=== PATIENT | female | born 1960 ===

== ENCOUNTER 2019-06-13 11:20 | Inpatient (IN) | payer MEDICARE, MEDICAID ==
[2019-06-13 12:09] VITALS: BP 93/64
[2019-06-13] MEDS ORDERED: Maalox 30 mL Cup PO PRN (13:04)
[2019-06-13] MEDS ORDERED: Magnesium Hydroxide (MOM) 30 mL UDC PO PRN (13:04)
[2019-06-13] MEDS ORDERED: Acetaminophen 500 MG TAB PO PRN (13:04)
--- NOTE | 2019-06-14 03:49 | Consultation ---
DATE OF CONSULTATION: 06/13/2019 INTERNAL MEDICINE CONSULTATION CHIEF COMPLAINT: Agitated, suicidal ideations. SUBJECTIVE: A 59-year-old female with hypertension, hyperlipidemia, who is brought in for management of ideation and behavior. The patient denies any chest pain or shortness of breath. No nausea, vomiting, abdominal pain, diarrhea. PAST MEDICAL HISTORY: None. MEDICATIONS: None. ALLERGIES: None. SOCIAL HISTORY: No tobacco, IV drugs, ETOH negative. PHYSICAL EXAMINATION: VITAL SIGNS: Temperature is ____. HEENT: Normocephalic, atraumatic head exam. NECK: Supple. CARDIOVASCULAR: Regular rate and rhythm. LUNGS: Clear. ABDOMEN: Soft, nontender. EXTREMITIES: No edema, cyanosis or clubbing. ASSESSMENT AND PLAN: 1. Agitation. 2. Suicidal ideations. Overall, the patient will continue with supportive care. JOB# [id number]
[2019-06-14] MEDS: Multivitamin Tab PO SCH (08:39)
--- NOTE | 2019-06-14 11:37 | Psychiatric Evaluation ---
DATE OF SERVICE: 06/14/2019 JUSTIFICATION FOR HOSPITALIZATION: The patient apparently was making statement she wanted to kill sister, aggressive, threatening sister. HISTORY OF PRESENT ILLNESS: This is a 59-year-old female noted history of schizophrenia per the hold, apparently was making threats to sister. The patient states that she is here because she was making threats to sister "misunderstanding." On exam, the patient is calm, quiet manner and stating this was a misunderstanding. She has no history of mental illness. She does not know why she is here, "something horrible and mean and frightening happened," somewhat hyperbolic. The patient denying that she did anything, that she did not want to harm anybody, minimizing her symptoms. Mood "okay." Anxiety "no." Sleep "fine." Appetite "okay." PAST PSYCHIATRIC HISTORY: Denies mental illness, denies hospitalizations. Noted history of schizophrenia. Denying being on medications. FAMILY HISTORY: Noncontributory. SOCIAL HISTORY: Born in [place], living in [place] now. Not , no kids. Sometimes smokes cigarettes. AO to name, place, not situation. She knows the year, the month. MEDICATIONS: Noted. MENTAL STATUS EXAMINATION: Stated age, unkempt, fair eye contact. Speech somewhat childlike. Behavior somewhat childlike. Speech low volume. Mood "fine." Affect constricted. Thought processes were grossly engaged, no SI, minimizing any HI. Denying any psychotic symptoms. Insight questionable. DIAGNOSIS: Schizophrenia. MEDICAL: Please see full H and P. ASSESSMENT: This is a 59-year-old female, currently in the hospital. Homicidal. Concerns for medication compliance. ESTIMATED LENGTH OF STAY: 7-10 days. PLAN: Treatment plan includes group as well as milieu therapy. Restart medications. Can adjust medications. CONDITIONS FOR DISCHARGE: Improved mood, improved affect, better control of any psychosis. Cessation of any HI, anxiousness. JOB# [id number]
--- NOTE | 2019-06-14 15:29 | Internal Medicine Prog Note ---
Internal Medicine Subjective - Subjective Service Date: 06/14/19 Patient seen and examined:: without staff Internal Medicine Objective - Physical Exam Vitals and I&O: Vital Signs Temp 98.3 F 06/14/19 14:00 Pulse 75 06/14/19 14:00 Resp 18 06/14/19 14:00 BP 99/55 06/14/19 14:00 Pulse Ox 96 06/14/19 14:00 Intake & Output 06/13/19 06/14/19 06/14/19 18:59 06:59 18:59 Intake Total 860 360 Balance 860 360 Weight (lbs) 79.379 kg Intake: Oral 860 360 Other: # Voids 3 2 # Bowel Movements 0 0 Weight Source Patient stated Active Medications: Current Medications Acetaminophen (Tylenol) 650 mg PO Q4H PRN PRN Reason: Pain (Mild 1-3) Stop: 08/12/19 13:03 Acetaminophen (Tylenol Extra Strength) 1,000 mg PO Q6H PRN PRN Reason: Pain (Moderate 4-6) Stop: 08/12/19 13:03 Last Admin: 06/14/19 08:39 Dose: 1,000 mg Al Hydrox/Mg Hydrox/Simethicone (Maalox) 30 ml PO Q4HR PRN PRN Reason: GI DISTRESS Stop: 08/12/19 13:03 Benztropine Mesylate (Cogentin) 1 mg PO DAILY [facility] Stop: 08/13/19 08:59 Ibuprofen (Motrin) 400 mg PO Q4H PRN PRN Reason: Pain (Severe 7-10) Stop: 08/12/19 13:03 Lorazepam (Ativan) 0.5 mg PO Q4HR PRN; Protocol PRN Reason: Anxiety Stop: 07/13/19 13:03 Magnesium Hydroxide (Milk Of Magnesia) 30 ml PO HS PRN PRN Reason: Constipation Multivitamins/Vitamin C (Theragran) 1 tab PO DAILY [facility] Stop: 08/13/19 08:59 Last Admin: 06/14/19 08:39 Dose: 1 tab Quetiapine Fumarate (Seroquel) 200 mg PO DAILY [facility]; Protocol Stop: 08/13/19 08:59 Sertraline HCl (Zoloft) 100 mg PO DAILY [facility]; Protocol Stop: 08/13/19 08:59 Zolpidem Tartrate (Ambien) 5 mg PO HS PRN PRN Reason: Insomnia Stop: 08/12/19 13:03 Last Admin: 06/13/19 21:11 Dose: 5 mg
[2019-06-15] MEDS: Benztropine 1 MG TAB PO SCH (08:40)
[2019-06-15] MEDS: Multivitamin Tab PO SCH (08:40)
--- NOTE | 2019-06-15 12:39 | Progress Notes ---
DATE: 06/15/2019 SUBJECTIVE: A 59-year-old female with history of schizophrenia, making threats to sister due to "misunderstanding." The patient states that somebody else was making these threats and she ended up here by accident. She states that she does not have schizophrenia and that some man was trying to enter her house and that is the reason that she is here now. The patient is generally calm, soft voice, delusional about some man trying to enter her house and triggered by another patient at times noted to be irritable, minimizing her symptoms. Medications reviewed. Labs reviewed. Vitals were reviewed. No overt side effects to medications. Blood pressure 99/55, pulse of 75. MENTAL STATUS EXAMINATION: Stated age, fair eye contact. Soft voice, minimizing her symptoms, denying that she even has any sort of mental illness whatsoever. Staff noting she is internally preoccupied, delusional. ASSESSMENT: A 59-year-old female with schizophrenia, acting strange apparently making threats towards sister. PLAN: We will continue inpatient monitoring, extend the hold, ongoing symptoms, safety concerns, increase dosing of Seroquel. JOB# [id number]
--- NOTE | 2019-06-15 14:19 | Internal Medicine Prog Note ---
Internal Medicine Subjective - Subjective Service Date: 06/15/19 Patient is:: awake Internal Medicine Objective - Physical Exam Vitals and I&O: Vital Signs Temp 0 F 06/15/19 05:58 Pulse 83 06/14/19 20:22 Resp 20 06/15/19 07:46 BP 123/84 06/14/19 20:22 Pulse Ox 96 06/14/19 20:22 Intake & Output 06/14/19 06/15/19 06/15/19 18:59 06:59 18:59 Intake Total 1320 120 Balance 1320 120 Intake: Oral 1080 120 Other 240 Other: # Voids 3 3 # Bowel Movements 1 0 Active Medications: Current Medications Acetaminophen (Tylenol) 650 mg PO Q4H PRN PRN Reason: Pain (Mild 1-3) Stop: 08/12/19 13:03 Acetaminophen (Tylenol Extra Strength) 1,000 mg PO Q6H PRN PRN Reason: Pain (Moderate 4-6) Stop: 08/12/19 13:03 Last Admin: 06/14/19 08:39 Dose: 1,000 mg Al Hydrox/Mg Hydrox/Simethicone (Maalox) 30 ml PO Q4HR PRN PRN Reason: GI DISTRESS Stop: 08/12/19 13:03 Benztropine Mesylate (Cogentin) 1 mg PO DAILY [facility] Stop: 08/13/19 08:59 Last Admin: 06/15/19 08:40 Dose: 1 mg Ibuprofen (Motrin) 400 mg PO Q4H PRN PRN Reason: Pain (Severe 7-10) Stop: 08/12/19 13:03 Lorazepam (Ativan) 0.5 mg PO Q4HR PRN; Protocol PRN Reason: Anxiety Stop: 07/13/19 13:03 Last Admin: 06/15/19 08:40 Dose: 0.5 mg Magnesium Hydroxide (Milk Of Magnesia) 30 ml PO HS PRN PRN Reason: Constipation Multivitamins/Vitamin C (Theragran) 1 tab PO DAILY [facility] Stop: 08/13/19 08:59 Last Admin: 06/15/19 08:40 Dose: 1 tab Quetiapine Fumarate (Seroquel) 50 mg PO DAILY [facility]; Protocol Stop: 08/14/19 08:59 Quetiapine Fumarate (Seroquel) 200 mg PO HS [facility] Stop: 08/14/19 20:59 Sertraline HCl (Zoloft) 100 mg PO DAILY [facility]; Protocol Stop: 08/13/19 08:59 Last Admin: 06/15/19 08:41 Dose: 100 mg Zolpidem Tartrate (Ambien) 5 mg PO HS PRN PRN Reason: Insomnia Stop: 08/12/19 13:03 Last Admin: 06/13/19 21:11 Dose: 5 mg HEENT: NC/AT Neck: Supple Lungs: CTAB Cardiovascular: RRR, Normal S1, Normal S2 Abdomen: soft, non-tender Extremities: clear Internal Medicine Assmt/Plan - Assessment Assessment: 1. Agitation 2. Suicidal ideation - Plan Plan: continue supportive care
[2019-06-16] MEDS: Multivitamin Tab PO SCH (08:52)
[2019-06-16] MEDS: Benztropine 1 MG TAB PO SCH (08:52)
--- NOTE | 2019-06-16 14:27 | Internal Medicine Prog Note ---
Internal Medicine Subjective - Subjective Service Date: 06/16/19 Patient seen and examined:: without staff Patient is:: awake Per staff patient has:: no adverse event, no episodes of fall Internal Medicine Objective - Physical Exam Vitals and I&O: Vital Signs Temp 98.1 F 06/16/19 06:25 Pulse 78 06/16/19 06:25 Resp 20 06/16/19 06:25 BP 100/63 06/16/19 06:25 Pulse Ox 98 06/16/19 06:25 Intake & Output 06/15/19 06/16/19 06/16/19 18:59 06:59 18:59 Intake Total 1200 120 Balance 1200 120 Intake: Oral 1200 120 Other: # Voids 4 1 # Bowel Movements 0 0 Active Medications: Current Medications Acetaminophen (Tylenol) 650 mg PO Q4H PRN PRN Reason: Pain (Mild 1-3) Stop: 08/12/19 13:03 Acetaminophen (Tylenol Extra Strength) 1,000 mg PO Q6H PRN PRN Reason: Pain (Moderate 4-6) Stop: 08/12/19 13:03 Last Admin: 06/14/19 08:39 Dose: 1,000 mg Al Hydrox/Mg Hydrox/Simethicone (Maalox) 30 ml PO Q4HR PRN PRN Reason: GI DISTRESS Stop: 08/12/19 13:03 Benztropine Mesylate (Cogentin) 1 mg PO DAILY [facility] Stop: 08/13/19 08:59 Last Admin: 06/16/19 08:52 Dose: 1 mg Ibuprofen (Motrin) 400 mg PO Q4H PRN PRN Reason: Pain (Severe 7-10) Stop: 08/12/19 13:03 Lorazepam (Ativan) 0.5 mg PO Q4HR PRN; Protocol PRN Reason: Anxiety Stop: 07/13/19 13:03 Last Admin: 06/15/19 16:26 Dose: 0.5 mg Magnesium Hydroxide (Milk Of Magnesia) 30 ml PO HS PRN PRN Reason: Constipation Multivitamins/Vitamin C (Theragran) 1 tab PO DAILY [facility] Stop: 08/13/19 08:59 Last Admin: 06/16/19 08:52 Dose: 1 tab Quetiapine Fumarate (Seroquel) 50 mg PO DAILY [facility]; Protocol Stop: 08/14/19 08:59 Last Admin: 06/16/19 08:52 Dose: 50 mg Quetiapine Fumarate (Seroquel) 200 mg PO HS [facility] Stop: 08/14/19 20:59 Last Admin: 06/15/19 20:10 Dose: 200 mg Sertraline HCl (Zoloft) 100 mg PO DAILY [facility]; Protocol Stop: 08/13/19 08:59 Last Admin: 06/16/19 08:51 Dose: 100 mg Zolpidem Tartrate (Ambien) 5 mg PO HS PRN PRN Reason: Insomnia Stop: 08/12/19 13:03 Last Admin: 06/13/19 21:11 Dose: 5 mg HEENT: NC/AT Neck: Supple Lungs: CTAB Cardiovascular: RRR, Normal S1, Normal S2 Abdomen: soft, non-tender Extremities: clear Internal Medicine Assmt/Plan - Assessment Assessment: 1. Agitation 2. Suicidal ideation - Plan Plan: continue supportive care
--- NOTE | 2019-06-16 20:15 | Progress Notes ---
DATE: 06/16/2019 SUBJECTIVE: Chart reviewed and the patient interviewed. Also discussed the patient's condition with the staff and reviewed records and labs. The patient continued to be anxious and restless. The patient also still has episodes of irritability and agitation. The patient also still seems to be suspicious and paranoid. Otherwise, the patient is interacting minimally with others. She also needs redirections. Otherwise, the patient is compliant with taking her medications with no side effects. ASSESSMENT: The patient still needs close monitoring. TREATMENT PLAN: Continue monitoring behavior. Also, continue adjusting psychotropic medications and work on behavioral modification. JOB# [id number]
[2019-06-17] MEDS: Multivitamin Tab PO SCH ×2 (08:30→09:18)
[2019-06-17] MEDS: Benztropine 1 MG TAB PO SCH ×2 (08:30→09:18)
--- NOTE | 2019-06-17 09:53 | Progress Notes ---
DATE: 06/17/2019 SUBJECTIVE: Chart reviewed and the patient interviewed. Also discussed the patient's condition with the staff and reviewed records and labs. The patient is still actively hallucinating and the patient was still in irritable mood. The patient also is acting bizarre and is still easily agitated and in irritable mood. The patient also during my interview was actively responding to her stimuli and continued to waving with her hands into the air and not able to carry on any coherent conversation with myself. The patient also was easily agitated and is minimizing the fact that she wanted to kill her sister. The patient also is still avoiding answering questions today and she is actively responding and is still severely paranoid. The patient's gait is steady. Vital signs are stable and no new labs available for review. MENTAL STATUS EXAMINATION: Disheveled. Anxious. Thought processes are circumstantial, but also at times, not answering any questions at all and responding. The patient did not answer questions regarding hallucinations or delusions, but actively responding. ASSESSMENT: The patient is still psychotic and still needs close monitoring and she can be dangerous to others. TREATMENT PLAN: We will increase Seroquel to 50 mg twice a day and 200 mg at bedtime. Also, continue Zoloft in a dose of 100 mg every day. Also, continue to work on her irritability and her paranoia and continue to follow up. ESTIMATED LENGTH OF STAY: 2-4 days. REASON TO CONTINUE HOSPITAL STAY: The patient is still agitated and she still can be dangerous to others. JOB# [id number]
--- NOTE | 2019-06-17 12:33 | Internal Medicine Prog Note ---
Internal Medicine Subjective - Subjective Service Date: 06/17/19 Patient is:: awake Per staff patient has:: no adverse event, no episodes of fall Internal Medicine Objective - Physical Exam Vitals and I&O: Vital Signs Temp 96.8 F 06/16/19 14:00 Pulse 82 06/16/19 14:00 Resp 18 06/16/19 14:00 BP 102/82 06/16/19 14:00 Pulse Ox 98 06/16/19 14:00 Intake & Output 06/16/19 06/17/19 06/17/19 18:59 06:59 18:59 Intake Total 900 120 Balance 900 120 Intake: Oral 900 120 Other: # Voids 3 3 # Bowel Movements 1 Active Medications: Current Medications Acetaminophen (Tylenol) 650 mg PO Q4H PRN PRN Reason: Pain (Mild 1-3) Stop: 08/12/19 13:03 Acetaminophen (Tylenol Extra Strength) 1,000 mg PO Q6H PRN PRN Reason: Pain (Moderate 4-6) Stop: 08/12/19 13:03 Last Admin: 06/14/19 08:39 Dose: 1,000 mg Al Hydrox/Mg Hydrox/Simethicone (Maalox) 30 ml PO Q4HR PRN PRN Reason: GI DISTRESS Stop: 08/12/19 13:03 Benztropine Mesylate (Cogentin) 1 mg PO DAILY [facility] Stop: 08/13/19 08:59 Last Admin: 06/17/19 09:18 Dose: Not Given Ibuprofen (Motrin) 400 mg PO Q4H PRN PRN Reason: Pain (Severe 7-10) Stop: 08/12/19 13:03 Lorazepam (Ativan) 0.5 mg PO Q4HR PRN; Protocol PRN Reason: Anxiety Stop: 07/13/19 13:03 Last Admin: 06/15/19 16:26 Dose: 0.5 mg Magnesium Hydroxide (Milk Of Magnesia) 30 ml PO HS PRN PRN Reason: Constipation Multivitamins/Vitamin C (Theragran) 1 tab PO DAILY [facility] Stop: 08/13/19 08:59 Last Admin: 06/17/19 09:18 Dose: Not Given Quetiapine Fumarate (Seroquel) 200 mg PO HS [facility] Stop: 08/14/19 20:59 Last Admin: 06/16/19 21:00 Dose: Not Given Quetiapine Fumarate (Seroquel) 50 mg PO BID [facility]; Protocol Stop: 08/16/19 08:59 Last Admin: 06/17/19 10:07 Dose: Not Given Sertraline HCl (Zoloft) 100 mg PO DAILY [facility]; Protocol Stop: 08/13/19 08:59 Last Admin: 06/17/19 09:18 Dose: Not Given Zolpidem Tartrate (Ambien) 5 mg PO HS PRN PRN Reason: Insomnia Stop: 08/12/19 13:03 Last Admin: 06/13/19 21:11 Dose: 5 mg HEENT: NC/AT Neck: Supple Lungs: CTAB Cardiovascular: RRR, Normal S1, Normal S2 Abdomen: soft, non-tender Extremities: clear Neurological: no change Internal Medicine Assmt/Plan - Assessment Assessment: 1. Agitation 2. Suicidal ideation - Plan Plan: continue supportive care
[2019-06-18] MEDS: Multivitamin Tab PO SCH (09:27)
[2019-06-18] MEDS: Benztropine 1 MG TAB PO SCH (09:27)
--- NOTE | 2019-06-18 21:00 | Psych Progress Note ---
Psych Progress Note - Intro Date of Progress Note: 06/18/19 - Assessment Assessment: Patient interviewed, case discussed with staff, chart and records reviewed. The patient continues to be responding heavily to internal stimuli. Before walking into the room the patient was observed talking to unseen others. Her thought process is significantly disorganized she is unable to cooperate. She appears to be disheveled and anxious. Has no plan for self-care. No side effects noted to the medications. - Vitals, I&O Vitals: Vital Signs - 24 hr 06/18/19 06/18/19 06/18/19 14:00 20:00 20:19 Temp 98.3 F 98.1 F HR 82 78 RR 18 20 19 BP 100/57 107/70 O2 Sat % 98 97 - Objective Psych General Appearance: Report: No acute distress Psych Behavior: Report: Uncooperative, Restless Psych Speech: Report: Mumbled Psych Mood: Report: Anxious Psych Affect: Report: Inappropriate, Labile Psych Thought Process: Report: Auditory Psych Cognition: Report: Confused Psych Insight: Report: Impaired Psych Judgement: Report: Impaired - Plan Plan: Continue current treatment plan, continue medications, continue monitoring for behaviors. - Review of Relevant Data Review of Relevant Data: I have reviewed the following items and time bennie (where applicable) has been applied. - Medications Current Medications: Current Medications Acetaminophen (Tylenol) 650 mg PO Q4H PRN PRN Reason: Pain (Mild 1-3) Stop: 08/12/19 13:03 Acetaminophen (Tylenol Extra Strength) 1,000 mg PO Q6H PRN PRN Reason: Pain (Moderate 4-6) Stop: 08/12/19 13:03 Last Admin: 06/14/19 08:39 Dose: 1,000 mg Al Hydrox/Mg Hydrox/Simethicone (Maalox) 30 ml PO Q4HR PRN PRN Reason: GI DISTRESS Stop: 08/12/19 13:03 Benztropine Mesylate (Cogentin) 1 mg PO DAILY [facility] Stop: 08/13/19 08:59 Last Admin: 06/18/19 09:27 Dose: Not Given Ibuprofen (Motrin) 400 mg PO Q4H PRN PRN Reason: Pain (Severe 7-10) Stop: 08/12/19 13:03 Lorazepam (Ativan) 0.5 mg PO Q4HR PRN; Protocol PRN Reason: Anxiety Stop: 07/13/19 13:03 Last Admin: 06/15/19 16:26 Dose: 0.5 mg Magnesium Hydroxide (Milk Of Magnesia) 30 ml PO HS PRN PRN Reason: Constipation Multivitamins/Vitamin C (Theragran) 1 tab PO DAILY [facility] Stop: 08/13/19 08:59 Last Admin: 06/18/19 09:27 Dose: Not Given Quetiapine Fumarate (Seroquel) 200 mg PO HS [facility] Stop: 08/14/19 20:59 Last Admin: 06/18/19 20:34 Dose: Not Given Quetiapine Fumarate (Seroquel) 50 mg PO BID [facility]; Protocol Stop: 08/16/19 08:59 Last Admin: 06/18/19 16:34 Dose: Not Given Sertraline HCl (Zoloft) 100 mg PO DAILY [facility]; Protocol Stop: 08/13/19 08:59 Last Admin: 06/18/19 09:27 Dose: Not Given Zolpidem Tartrate (Ambien) 5 mg PO HS PRN PRN Reason: Insomnia Stop: 08/12/19 13:03 Last Admin: 06/13/19 21:11 Dose: 5 mg
[2019-06-19] MEDS: Benztropine 1 MG TAB PO SCH (08:58)
[2019-06-19] MEDS: Multivitamin Tab PO SCH (08:58)
--- NOTE | 2019-06-19 19:11 | Psych Progress Note ---
Psych Progress Note - Intro Date of Progress Note: 06/19/19 - Assessment Assessment: Patient interviewed, case discussed with staff, chart and records reviewed. The patient continues to be responding heavily to internal stimuli. She was in the dayroom talking to unseen others. Her thought process is significantly disorganized she is unable to cooperate. She appears to be disheveled and anxious. Has no plan for self-care. No side effects noted to the medications. - Vitals, I&O Vitals: Vital Signs - 24 hr 06/18/19 06/18/19 06/19/19 20:00 20:19 08:00 Temp 98.1 F HR 78 RR 20 19 20 BP 107/70 O2 Sat % 97 06/19/19 14:00 Temp 98.4 F HR 83 RR 18 BP 112/68 O2 Sat % 95 - Objective Psych General Appearance: Report: No acute distress Psych Behavior: Report: Uncooperative, Restless Psych Speech: Report: Mumbled Psych Mood: Report: Anxious Psych Affect: Report: Inappropriate, Labile Psych Thought Process: Report: Auditory Psych Cognition: Report: Confused Psych Insight: Report: Impaired Psych Judgement: Report: Impaired - Plan Plan: Continue current treatment plan, continue medications, continue monitoring for behaviors. - Review of Relevant Data Review of Relevant Data: I have reviewed the following items and time bennie (where applicable) has been applied. - Medications Current Medications: Current Medications Acetaminophen (Tylenol) 650 mg PO Q4H PRN PRN Reason: Pain (Mild 1-3) Stop: 08/12/19 13:03 Acetaminophen (Tylenol Extra Strength) 1,000 mg PO Q6H PRN PRN Reason: Pain (Moderate 4-6) Stop: 08/12/19 13:03 Last Admin: 06/14/19 08:39 Dose: 1,000 mg Al Hydrox/Mg Hydrox/Simethicone (Maalox) 30 ml PO Q4HR PRN PRN Reason: GI DISTRESS Stop: 08/12/19 13:03 Benztropine Mesylate (Cogentin) 1 mg PO DAILY [facility] Stop: 08/13/19 08:59 Last Admin: 06/19/19 08:58 Dose: Not Given Ibuprofen (Motrin) 400 mg PO Q4H PRN PRN Reason: Pain (Severe 7-10) Stop: 08/12/19 13:03 Lorazepam (Ativan) 0.5 mg PO Q4HR PRN; Protocol PRN Reason: Anxiety Stop: 07/13/19 13:03 Last Admin: 06/15/19 16:26 Dose: 0.5 mg Magnesium Hydroxide (Milk Of Magnesia) 30 ml PO HS PRN PRN Reason: Constipation Multivitamins/Vitamin C (Theragran) 1 tab PO DAILY [facility] Stop: 08/13/19 08:59 Last Admin: 06/19/19 08:58 Dose: Not Given Quetiapine Fumarate (Seroquel) 200 mg PO HS [facility] Stop: 08/14/19 20:59 Last Admin: 06/18/19 20:34 Dose: Not Given Quetiapine Fumarate (Seroquel) 50 mg PO BID [facility]; Protocol Stop: 08/16/19 08:59 Last Admin: 06/19/19 16:18 Dose: Not Given Sertraline HCl (Zoloft) 100 mg PO DAILY [facility]; Protocol Stop: 08/13/19 08:59 Last Admin: 06/19/19 08:58 Dose: Not Given Zolpidem Tartrate (Ambien) 5 mg PO HS PRN PRN Reason: Insomnia Stop: 08/12/19 13:03 Last Admin: 06/13/19 21:11 Dose: 5 mg
--- NOTE | 2019-06-20 08:32 | Progress Notes ---
DATE: 06/20/2019 PSYCHIATRIC PROGRESS NOTE SUBJECTIVE: Chart reviewed and the patient interviewed and discussed the patient's condition with the staff and reviewed records and labs. The patient continued to be selectively mute and she is still not answering most of my questions. The patient also is still actively hallucinating and actively acting bizarre and talking to herself. The patient also is still refusing to take any medications in spite of my trial to explain the benefits, side effects and alternatives. The patient also is still easily agitated and she is still having difficulty following staff directions. She also has unpredictable behavior and seems to be preoccupied. The patient also is still in denial of her illness and she has been refusing to take medications for unknown reasons. The patient's gait is steady. Vital signs are stable and no new labs available for review. MENTAL STATUS EXAMINATION: Irritable in mood. Actively hallucinating and actively talking to herself. The patient also still needs close monitoring to monitor her behavior closely. TREATMENT PLAN: We will request a [employer] petition. Also, we will try to convince the patient starting to take her psychotropic medications, although she has been refusing. Also, we will monitor her behavior closely. ESTIMATED LENGTH OF STAY: 3-5 days. REASON FOR CONTINUED HOSPITAL STAY: The patient is still psychotic and agitated and also refused medications. JOB# [id number]
[2019-06-20] MEDS: Benztropine 1 MG TAB PO SCH (08:42)
[2019-06-20] MEDS: Multivitamin Tab PO SCH (08:42)
--- NOTE | 2019-06-20 11:40 | Internal Medicine Prog Note ---
Internal Medicine Subjective - Subjective Service Date: 06/20/19 Patient is:: awake Per staff patient has:: no adverse event, no episodes of fall Internal Medicine Objective - Physical Exam Vitals and I&O: Vital Signs Temp 98.3 F 06/20/19 06:24 Pulse 74 06/20/19 06:24 Resp 17 06/20/19 08:00 BP 95/56 06/20/19 06:24 Pulse Ox 97 06/20/19 06:24 Intake & Output 06/19/19 06/20/19 06/20/19 18:59 06:59 18:59 Intake Total 1000 360 Balance 1000 360 Intake: Oral 1000 360 Other: # Voids 1 # Bowel Movements 1 0 Active Medications: Current Medications Acetaminophen (Tylenol) 650 mg PO Q4H PRN PRN Reason: Pain (Mild 1-3) Stop: 08/12/19 13:03 Acetaminophen (Tylenol Extra Strength) 1,000 mg PO Q6H PRN PRN Reason: Pain (Moderate 4-6) Stop: 08/12/19 13:03 Last Admin: 06/14/19 08:39 Dose: 1,000 mg Al Hydrox/Mg Hydrox/Simethicone (Maalox) 30 ml PO Q4HR PRN PRN Reason: GI DISTRESS Stop: 08/12/19 13:03 Benztropine Mesylate (Cogentin) 1 mg PO DAILY [facility] Stop: 08/13/19 08:59 Last Admin: 06/20/19 08:42 Dose: Not Given Ibuprofen (Motrin) 400 mg PO Q4H PRN PRN Reason: Pain (Severe 7-10) Stop: 08/12/19 13:03 Lorazepam (Ativan) 0.5 mg PO Q4HR PRN; Protocol PRN Reason: Anxiety Stop: 07/13/19 13:03 Last Admin: 06/15/19 16:26 Dose: 0.5 mg Magnesium Hydroxide (Milk Of Magnesia) 30 ml PO HS PRN PRN Reason: Constipation Multivitamins/Vitamin C (Theragran) 1 tab PO DAILY [facility] Stop: 08/13/19 08:59 Last Admin: 06/20/19 08:42 Dose: Not Given Quetiapine Fumarate (Seroquel) 200 mg PO HS [facility] Stop: 08/14/19 20:59 Last Admin: 06/19/19 20:59 Dose: Not Given Quetiapine Fumarate (Seroquel) 50 mg PO BID [facility]; Protocol Stop: 08/16/19 08:59 Last Admin: 06/20/19 08:42 Dose: Not Given Sertraline HCl (Zoloft) 100 mg PO DAILY [facility]; Protocol Stop: 08/13/19 08:59 Last Admin: 06/20/19 08:42 Dose: Not Given Zolpidem Tartrate (Ambien) 5 mg PO HS PRN PRN Reason: Insomnia Stop: 08/12/19 13:03 Last Admin: 06/13/19 21:11 Dose: 5 mg HEENT: NC/AT Neck: Supple Lungs: CTAB Cardiovascular: RRR, Normal S1, Normal S2 Abdomen: soft, non-tender Extremities: clear Neurological: no change Internal Medicine Assmt/Plan - Assessment Assessment: 1. Agitation 2. Suicidal ideation - Plan Plan: continue supportive care d/w r.n. Nutritional Asmnt/Malnutr-PDOC - Dietary Evaluation Malnutrition Findings (Please click <Entered> for more info): Nutritional Asmnt/Malnutrition Start: 06/18/19 10: 02 Text: Status: Complete Freq: Protocol: Document 06/18/19 10:02 ASIA (Rec: 06/18/19 10:22 ASIA ANA M- [id number]) Nutritional Asmnt/Malnutrition Patient General Information Nutritional Screening Low Risk Diagnosis Psychosis Subjective Information Patient was admitted from [facility] on 5150. Dietary providing 2300 kcal, 80gm protein. With current intake, patient is meeting estimated nutrient needs. Current Diet Order/ Nutrition Support Regular Patient / S.O Not Indicated Pertinent Medications maalox, MOM, Theragran Pertinent Labs 5/6 Cholesterol 223, LDL 140 Nutritional Hx/Data Height 1.73 m Height (Calculated Centimeters) 172.7 Current Weight (lbs) 79.379 kg Weight (Calculated Kilograms) 79.4 Weight (Calculated Grams) 92932.7 [place] Body Weight 140 % [place] Body Weight 125 Body Mass Index (BMI) 26.6 Recent Weight Change No Weight Status Overweight GI Symptoms GI Symptoms None Last BM 06/16 x 1 Difficult in: None Food Allergies No Cultural/Ethnic/Rastafari Belief none indicated Usual diet at home unknown Skin Integrity/Comment: Gary 22, intact Current %PO Good (75-100%) Estimated Nutritional Goals BEE in Kcals: Using Current wt Calories/Kcals/Kg 79.5kg CBW 22-27 kcal/kg Kcals Calculated ~3521-6244 kcal/day Protein: Using Current wt Protein g/k.8-1 gm/kg Protein Calculated ~65-80 gm/day Fluid: ml ~2481-5899 ml/day (1 ml/kcal) Nutritional Problem 1. Problem Problem No nutrition diagnosis at this time Intervention/Recommendation Comments Continue current diet as tolerated by patient. Expected Outcomes/Goals Expected Outcomes/Goals Oral intake >75% of meals, weight stable or trend toward IBW, nutrition related labs WNL F/U LR 06/24-
[2019-06-21] MEDS: Multivitamin Tab PO SCH (08:46)
[2019-06-21] MEDS: Benztropine 1 MG TAB PO SCH (08:46)
--- NOTE | 2019-06-21 10:11 | Progress Notes ---
DATE: SUBJECTIVE: Chart was reviewed and the patient interviewed. Also discussed the patient's condition with the staff and reviewed records and labs. The patient's affect is brighter. The patient is interacting more with peers and with others. The patient also denies any intention to harm herself or others. She is angry and she is selectively mute and refused to take medications. She is also unpredictable and easily agitated. Riese petition is to be done today and waiting for Riese petition. MENTAL STATUS EXAMINATION: Angry. Suspicious and paranoid. PLAN: Waiting for Riese petition and we will start the patient on psychotropic medications. JOB# [id number]
[2019-06-21] MEDS ORDERED: Haloperidol Lactate 5 mg/mL 1mL Vial IM PRN (14:31)
[2019-06-21] MEDS ORDERED: Haloperidol Lactate 5 mg/mL 1mL Vial ONE (14:36)
[2019-06-22] MEDS: Multivitamin Tab PO SCH (10:00)
[2019-06-22] MEDS: Benztropine 1 MG TAB PO SCH (10:00)
--- NOTE | 2019-06-22 13:51 | Internal Medicine Prog Note ---
Internal Medicine Subjective - Subjective Service Date: 06/22/19 Patient is:: awake Per staff patient has:: no adverse event, no episodes of fall Internal Medicine Objective - Physical Exam Vitals and I&O: Vital Signs Temp 98.4 F 06/22/19 07:00 Pulse 83 06/22/19 08:00 Resp 20 06/22/19 08:00 BP 99/63 06/22/19 08:00 Pulse Ox 100 06/22/19 07:00 Intake & Output 06/21/19 06/22/19 06/22/19 18:59 06:59 18:59 Intake Total 120 120 Balance 120 120 Intake: Oral 120 120 Other: # Voids 3 2 2 # Bowel Movements 1 0 0 Active Medications: Current Medications Acetaminophen (Tylenol) 650 mg PO Q4H PRN PRN Reason: Pain (Mild 1-3) Stop: 08/12/19 13:03 Acetaminophen (Tylenol Extra Strength) 1,000 mg PO Q6H PRN PRN Reason: Pain (Moderate 4-6) Stop: 08/12/19 13:03 Last Admin: 06/14/19 08:39 Dose: 1,000 mg Al Hydrox/Mg Hydrox/Simethicone (Maalox) 30 ml PO Q4HR PRN PRN Reason: GI DISTRESS Stop: 08/12/19 13:03 Benztropine Mesylate (Cogentin) 1 mg PO DAILY [facility] Stop: 08/13/19 08:59 Last Admin: 06/22/19 10:00 Dose: 1 mg Haloperidol Lactate (Haldol) 5 mg IM BID PRN PRN Reason: If refused quetiapine 50mg bid Stop: 08/20/19 14:30 Last Admin: 06/21/19 14:45 Dose: 5 mg Ibuprofen (Motrin) 400 mg PO Q4H PRN PRN Reason: Pain (Severe 7-10) Stop: 08/12/19 13:03 Lorazepam (Ativan) 0.5 mg PO Q4HR PRN; Protocol PRN Reason: Anxiety Stop: 07/13/19 13:03 Last Admin: 06/15/19 16:26 Dose: 0.5 mg Magnesium Hydroxide (Milk Of Magnesia) 30 ml PO HS PRN PRN Reason: Constipation Multivitamins/Vitamin C (Theragran) 1 tab PO DAILY [facility] Stop: 08/13/19 08:59 Last Admin: 06/22/19 10:00 Dose: 1 tab Quetiapine Fumarate (Seroquel) 200 mg PO HS [facility] Stop: 08/14/19 20:59 Last Admin: 06/21/19 20:39 Dose: 200 mg Quetiapine Fumarate (Seroquel) 50 mg PO BID [facility]; Protocol Stop: 08/16/19 08:59 Last Admin: 06/22/19 10:00 Dose: 50 mg Sertraline HCl (Zoloft) 100 mg PO DAILY [facility]; Protocol Stop: 08/13/19 08:59 Last Admin: 06/22/19 10:00 Dose: 100 mg Zolpidem Tartrate (Ambien) 5 mg PO HS PRN PRN Reason: Insomnia Stop: 08/12/19 13:03 Last Admin: 06/13/19 21:11 Dose: 5 mg HEENT: NC/AT Neck: Supple Lungs: CTAB Cardiovascular: RRR, Normal S1, Normal S2 Abdomen: soft, non-tender Extremities: clear Neurological: no change Internal Medicine Assmt/Plan - Assessment Assessment: 1. Agitation 2. Suicidal ideation - Plan Plan: continue supportive care d/w r.n. Nutritional Asmnt/Malnutr-PDOC - Dietary Evaluation Malnutrition Findings (Please click <Entered> for more info): Nutritional Asmnt/Malnutrition Start: 06/18/19 10: 02 Text: Status: Complete Freq: Protocol: Document 06/18/19 10:02 ASIA (Rec: 06/18/19 10:22 ASIA ANA M- [id number]) Nutritional Asmnt/Malnutrition Patient General Information Nutritional Screening Low Risk Diagnosis Psychosis Subjective Information Patient was admitted from [facility] on 5150. Dietary providing 2300 kcal, 80gm protein. With current intake, patient is meeting estimated nutrient needs. Current Diet Order/ Nutrition Support Regular Patient / S.O Not Indicated Pertinent Medications maalox, MOM, Theragran Pertinent Labs 5/6 Cholesterol 223, LDL 140 Nutritional Hx/Data Height 1.73 m Height (Calculated Centimeters) 172.7 Current Weight (lbs) 79.379 kg Weight (Calculated Kilograms) 79.4 Weight (Calculated Grams) 87071.7 [place] Body Weight 140 % [place] Body Weight 125 Body Mass Index (BMI) 26.6 Recent Weight Change No Weight Status Overweight GI Symptoms GI Symptoms None Last BM 5/8 x 1 Difficult in: None Food Allergies No Cultural/Ethnic/Sikh Belief none indicated Usual diet at home unknown Skin Integrity/Comment: Gary 22, intact Current %PO Good (75-100%) Estimated Nutritional Goals BEE in Kcals: Using Current wt Calories/Kcals/Kg 79.5kg CBW 22-27 kcal/kg Kcals Calculated ~5637-0818 kcal/day Protein: Using Current wt Protein g/k.8-1 gm/kg Protein Calculated ~65-80 gm/day Fluid: ml ~4022-7716 ml/day (1 ml/kcal) Nutritional Problem 1. Problem Problem No nutrition diagnosis at this time Intervention/Recommendation Comments Continue current diet as tolerated by patient. Expected Outcomes/Goals Expected Outcomes/Goals Oral intake >75% of meals, weight stable or trend toward IBW, nutrition related labs WNL F/U LR 06/24-
[2019-06-23] MEDS: Benztropine 1 MG TAB PO SCH (09:25)
[2019-06-23] MEDS: Multivitamin Tab PO SCH (09:25)
[2019-06-24] MEDS: Multivitamin Tab PO SCH (09:09)
[2019-06-24] MEDS: Benztropine 1 MG TAB PO SCH (09:09)
--- NOTE | 2019-06-24 14:49 | Internal Medicine Prog Note ---
Internal Medicine Subjective - Subjective Service Date: 06/24/19 Patient seen and examined:: without staff Patient is:: awake Per staff patient has:: no adverse event, no episodes of fall Internal Medicine Objective - Physical Exam Vitals and I&O: Vital Signs Temp 97.2 F 06/24/19 06:40 Pulse 79 06/24/19 06:40 Resp 20 06/24/19 06:40 BP 99/64 06/24/19 06:40 Pulse Ox 97 06/24/19 06:40 Intake & Output 06/23/19 06/24/19 06/24/19 18:59 06:59 18:59 Intake Total 1000 120 Balance 1000 120 Intake: Oral 1000 120 Other: # Voids 4 2 # Bowel Movements 1 0 Active Medications: Current Medications Acetaminophen (Tylenol) 650 mg PO Q4H PRN PRN Reason: Pain (Mild 1-3) Stop: 08/12/19 13:03 Acetaminophen (Tylenol Extra Strength) 1,000 mg PO Q6H PRN PRN Reason: Pain (Moderate 4-6) Stop: 08/12/19 13:03 Last Admin: 06/14/19 08:39 Dose: 1,000 mg Al Hydrox/Mg Hydrox/Simethicone (Maalox) 30 ml PO Q4HR PRN PRN Reason: GI DISTRESS Stop: 08/12/19 13:03 Benztropine Mesylate (Cogentin) 1 mg PO DAILY [facility] Stop: 08/13/19 08:59 Last Admin: 06/24/19 09:09 Dose: 1 mg Haloperidol Lactate (Haldol) 5 mg IM BID PRN PRN Reason: If refused quetiapine 50mg bid Stop: 08/20/19 14:30 Last Admin: 06/21/19 14:45 Dose: 5 mg Ibuprofen (Motrin) 400 mg PO Q4H PRN PRN Reason: Pain (Severe 7-10) Stop: 08/12/19 13:03 Lorazepam (Ativan) 0.5 mg PO Q4HR PRN; Protocol PRN Reason: Anxiety Stop: 07/13/19 13:03 Last Admin: 06/23/19 16:24 Dose: 0.5 mg Magnesium Hydroxide (Milk Of Magnesia) 30 ml PO HS PRN PRN Reason: Constipation Multivitamins/Vitamin C (Theragran) 1 tab PO DAILY [facility] Stop: 08/13/19 08:59 Last Admin: 06/24/19 09:09 Dose: 1 tab Quetiapine Fumarate (Seroquel) 200 mg PO HS [facility] Stop: 08/14/19 20:59 Last Admin: 06/23/19 21:47 Dose: 200 mg Quetiapine Fumarate (Seroquel) 50 mg PO BID [facility]; Protocol Stop: 08/16/19 08:59 Last Admin: 06/24/19 09:09 Dose: 50 mg Sertraline HCl (Zoloft) 100 mg PO DAILY [facility]; Protocol Stop: 08/13/19 08:59 Last Admin: 06/24/19 09:09 Dose: 100 mg Zolpidem Tartrate (Ambien) 5 mg PO HS PRN PRN Reason: Insomnia Stop: 08/12/19 13:03 Last Admin: 06/23/19 21:47 Dose: 5 mg HEENT: NC/AT Neck: Supple Lungs: CTAB Cardiovascular: RRR, Normal S1, Normal S2 Abdomen: soft, non-tender Extremities: clear Neurological: no change Internal Medicine Assmt/Plan - Assessment Assessment: 1. Agitation 2. Suicidal ideation - Plan Plan: continue supportive care d/w r.n. Nutritional Asmnt/Malnutr-PDOC - Dietary Evaluation Malnutrition Findings (Please click <Entered> for more info): Nutritional Asmnt/Malnutrition Start: 06/18/19 10: 02 Text: Status: Complete Freq: Protocol: Document 06/18/19 10:02 ASIA (Rec: 06/18/19 10:22 ASIA ANA M- [id number]) Nutritional Asmnt/Malnutrition Patient General Information Nutritional Screening Low Risk Diagnosis Psychosis Subjective Information Patient was admitted from [facility] on 5150. Dietary providing 2300 kcal, 80gm protein. With current intake, patient is meeting estimated nutrient needs. Current Diet Order/ Nutrition Support Regular Patient / S.O Not Indicated Pertinent Medications maalox, MOM, Theragran Pertinent Labs 5/6 Cholesterol 223, LDL 140 Nutritional Hx/Data Height 1.73 m Height (Calculated Centimeters) 172.7 Current Weight (lbs) 79.379 kg Weight (Calculated Kilograms) 79.4 Weight (Calculated Grams) 18684.7 [place] Body Weight 140 % [place] Body Weight 125 Body Mass Index (BMI) 26.6 Recent Weight Change No Weight Status Overweight GI Symptoms GI Symptoms None Last BM 8 x 1 Difficult in: None Food Allergies No Cultural/Ethnic/Anabaptist Belief none indicated Usual diet at home unknown Skin Integrity/Comment: Gary 22, intact Current %PO Good (75-100%) Estimated Nutritional Goals BEE in Kcals: Using Current wt Calories/Kcals/Kg 79.5kg CBW 22-27 kcal/kg Kcals Calculated ~5334-4187 kcal/day Protein: Using Current wt Protein g/k.8-1 gm/kg Protein Calculated ~65-80 gm/day Fluid: ml ~9790-4868 ml/day (1 ml/kcal) Nutritional Problem 1. Problem Problem No nutrition diagnosis at this time Intervention/Recommendation Comments Continue current diet as tolerated by patient. Expected Outcomes/Goals Expected Outcomes/Goals Oral intake >75% of meals, weight stable or trend toward IBW, nutrition related labs WNL F/U LR 06/24-19
--- NOTE | 2019-06-24 16:18 | Diagnostic Imaging Report ---
Portable chest x-ray History: Cough Allowing for portable technique the heart size is normal. No focal pulmonary parenchymal processes. No hilar or mediastinal abnormalities. Impression: No acute abnormalities.
--- NOTE | 2019-06-24 16:18 | Progress Notes ---
DATE: 06/23/2019 PSYCHIATRIC PROGRESS NOTE SUBJECTIVE: Chart reviewed and the patient interviewed. Also discussed the patient's condition with the staff and reviewed records and labs. The patient's affect is brighter. The patient is less irritable and less agitated. The patient also is less paranoid. She is interacting more with peers and with others. The patient is also compliant with taking her medications with no side effects of medications. She is sleeping better and eating better. Patient's gait is steady. Vital signs are stable and no new labs available for review. MENTAL STATUS EXAMINATION: Unkempt. Cooperative. Thought processes mainly goal directed. She denies hallucinations or delusions and denies suicide or homicide. ASSESSMENT: The patient is not suicidal or homicidal or psychotic. TREATMENT PLAN: ____ accepted the patient and I confirmed that ____ accepted the patient today. Plan is to discharge the patient today and outpatient treatment and followup will continue there. At the time of discharge, the patient was not suicidal or homicidal or psychotic. JOB# [id number]
--- NOTE | 2019-06-24 16:18 | Progress Notes ---
DATE: 06/22/2019 SUBJECTIVE: Chart reviewed and the patient interviewed. Also discussed the patient's condition with the staff and reviewed records and labs. Riese petition was upheld yesterday and the patient Riesed. The patient was resisting taking medications yesterday, but the patient did take emergency medications when she was refusing and since she has been taking her medications orally. The patient seems to be much calmer since started on medications and she eased it to follow directions. The patient also is not responding to stimuli. The patient also is interacting more with peers and with others. She denies any hallucinations or delusions and denies any suicide or homicide ideations, but she is still guarded. The patient's gait is steady. Vital signs are stable and no new labs available for review. MENTAL STATUS EXAMINATION: Calm and cooperative, but preoccupied. Restless. No hallucinations or delusions. No suicidal or homicidal ideations. ASSESSMENT: The patient is calmer since she started to take medications. TREATMENT PLAN: Continue current medications and treatment. Continue to monitor behavior and follow up and work on discharge plans. ESTIMATED LENGTH OF STAY: 1-3 days. REASON FOR CONTINUED HOSPITAL STAY: The patient is anxious and is paranoid and needs adjustment to her medications. JOB# [id number]
--- NOTE | 2019-06-25 00:21 | Progress Notes ---
DATE: SUBJECTIVE: Chart reviewed and the patient interviewed. Also discussed the patient's condition with the staff and reviewed records and labs. The patient's affect is brighter. The patient is less irritable and less agitated. The patient also interacted more appropriately and she is able to carry on coherent conversation. The patient also denies any hallucinations or delusions and denies any suicidal or homicidal ideations. ASSESSMENT: The patient is not psychotic or suicidal or homicidal. TREATMENT PLAN: The patient accepted to a nursing facility in [place]. Planning to discharge the patient today to [facility] and with plan to follow up there. Communication with Mary in the facility indicated that they accepted the patient yesterday and they were waiting for her yesterday and today and I did place discharge order for both days, but still not sure why the patient is still in the hospital. No communication from any of staff regarding her discharge and I have no orders to cancel the discharge yesterday and hopefully the patient will be discharged today. It is not clear to me who did give the cancellation of the discharge order yesterday. At the same time, hopefully today, the patient can go there and was planned to be followed there. JOB# [id number]
[2019-06-25] MEDS: Multivitamin Tab PO SCH (09:24)
[2019-06-25] MEDS: Benztropine 1 MG TAB PO SCH (09:24)
--- NOTE | 2019-06-25 22:18 | Progress Notes ---
DATE: 06/25/2019 SUBJECTIVE: A 59-year-old female, currently in the hospital, was making threats to sister. I saw this patient when she first came to the hospital, history of schizophrenia, but in denial, calmer this morning, speaks in a very soft voice, generally cooperative when I speak with her, but staff noting that she has been at times agitated, sometimes opposes medications, still denying that she wants to hurt anybody. Staff noting that she escalates at times, actually asking me for dose adjustments of medications due to concerns for ongoing psychotic symptoms and ongoing behavioral disturbances. Medications were reviewed. Labs were reviewed. Vitals were reviewed. No overt side effects to medications. No EPS, no akathisia. ASSESSMENT: The patient in the hospital, ongoing symptoms, acting out behaviors, concerns for underlying psychosis, mumbling to self. PLAN: I will be increasing her dosing of medications today. Time spent with the patient, lengthy discussion with staff, increase dosing of p.r.n. Ativan increase dosing of Seroquel. [facility]# [id number]
[2019-06-26] MEDS: Multivitamin Tab PO SCH (08:55)
[2019-06-26] MEDS: Benztropine 1 MG TAB PO SCH (08:55)
--- NOTE | 2019-06-26 14:00 | Progress Notes ---
DATE: 06/26/2019 SUBJECTIVE: A 59-year-old female, currently in the hospital, history of mental illness, schizophrenia here because apparently she made some threatening statements toward her family, sister specifically. On [id number], the patient is calm, soft tone of speech. States everything is "fine," minimizes her symptoms. Mood "okay." Sleep "okay." However over the past 24 hours, the patient has been disruptive, agitated, slamming doors. Staff having a hard time redirecting her. Still noted to be psychotic. Staff noting she is mumbling to self, staring blankly, talking to the wall, ongoing psychotic symptoms. Recent dose increase of the Seroquel yesterday. Medications were reviewed. Labs were reviewed. Vitals were reviewed. No overt side effects of medications, seems to be tolerating Seroquel. No EPS, no akathisia. ASSESSMENT: A 59-year-old female on chronic mental illness. Ongoing symptoms. Psychotically driven agitation, paranoia, still disruptive on the unit. PLAN: We will continue inpatient monitoring. The patient remains unstable, increased dosing of Seroquel yesterday. We will await steady state. The patient is currently not safe for a lower level of care, still somewhat unpredictable in regards to her behaviors at this time. We will continue to target her mood symptoms, psychotic symptoms. [facility]# [id number]
[2019-06-27] MEDS: Multivitamin Tab PO SCH (08:31)
[2019-06-27] MEDS: Benztropine 1 MG TAB PO SCH (08:32)
--- NOTE | 2019-06-27 10:40 | Progress Notes ---
DATE: SUBJECTIVE: Chart was reviewed and the patient interviewed. Also discussed the patient's condition with the staff and reviewed records and labs. The patient's affect is brighter. The patient is calm and cooperative with her treatment. The patient denies any hallucinations, but slightly paranoid. The patient denies any side effects of medications. ASSESSMENT: The patient is not psychotic or suicidal or homicidal. TREATMENT PLAN: Planning to discharge the patient today. Outpatient treatment and followup will continue as an outpatient in [facility]. [facility]# [id number]
--- NOTE | 2019-06-27 14:50 | Internal Medicine Prog Note ---
Internal Medicine Subjective - Subjective Service Date: 06/27/19 Patient seen and examined:: without staff Patient is:: awake Per staff patient has:: no adverse event, no episodes of fall Internal Medicine Objective - Physical Exam Vitals and I&O: Vital Signs Temp 98.0 F 06/26/19 20:46 Pulse 79 06/26/19 20:46 Resp 16 06/27/19 08:00 BP 97/58 06/26/19 20:46 Pulse Ox 97 06/26/19 20:46 Intake & Output 06/26/19 06/27/19 06/27/19 18:59 06:59 18:59 Intake Total 900 360 Balance 900 360 Intake: Oral 900 360 Other: # Voids 3 1 # Bowel Movements 1 Stool Characteristics Soft Active Medications: Current Medications Acetaminophen (Tylenol) 650 mg PO Q4H PRN PRN Reason: Pain (Mild 1-3) Stop: 08/12/19 13:03 Acetaminophen (Tylenol Extra Strength) 1,000 mg PO Q6H PRN PRN Reason: Pain (Moderate 4-6) Stop: 08/12/19 13:03 Last Admin: 06/14/19 08:39 Dose: 1,000 mg Al Hydrox/Mg Hydrox/Simethicone (Maalox) 30 ml PO Q4HR PRN PRN Reason: GI DISTRESS Stop: 08/12/19 13:03 Benztropine Mesylate (Cogentin) 1 mg PO DAILY [facility] Stop: 08/13/19 08:59 Last Admin: 06/27/19 08:32 Dose: 1 mg Haloperidol Lactate (Haldol) 5 mg IM BID PRN PRN Reason: If refused quetiapine 50mg bid Stop: 08/20/19 14:30 Last Admin: 06/21/19 14:45 Dose: 5 mg Ibuprofen (Motrin) 400 mg PO Q4H PRN PRN Reason: Pain (Severe 7-10) Stop: 08/12/19 13:03 Lorazepam (Ativan) 1 mg PO Q6HR PRN; Protocol PRN Reason: Agitation Stop: 08/24/19 12:16 Last Admin: 06/26/19 15:56 Dose: 1 mg Magnesium Hydroxide (Milk Of Magnesia) 30 ml PO HS PRN PRN Reason: Constipation Multivitamins/Vitamin C (Theragran) 1 tab PO DAILY [facility] Stop: 08/13/19 08:59 Last Admin: 06/27/19 08:31 Dose: 1 tab Quetiapine Fumarate (Seroquel) 50 mg PO BID [facility]IM[facility]; Protocol Stop: 08/16/19 08:59 Last Admin: 06/27/19 08:31 Dose: 50 mg Quetiapine Fumarate (Seroquel) 300 mg PO HS [facility] Stop: 08/24/19 20:59 Sertraline HCl (Zoloft) 100 mg PO DAILY [facility]; Protocol Stop: 08/13/19 08:59 Last Admin: 06/27/19 08:31 Dose: 100 mg Zolpidem Tartrate (Ambien) 5 mg PO HS PRN PRN Reason: Insomnia Stop: 08/12/19 13:03 Last Admin: 06/25/19 21:21 Dose: 5 mg HEENT: NC/AT Neck: Supple Lungs: CTAB Cardiovascular: RRR, Normal S1, Normal S2 Abdomen: soft, non-tender Extremities: clear Neurological: no change Internal Medicine Assmt/Plan - Assessment Assessment: 1. Agitation 2. Suicidal ideation - Plan Plan: continue supportive care d/w r.n. Nutritional Asmnt/Malnutr-PDOC - Dietary Evaluation Malnutrition Findings (Please click <Entered> for more info): Nutritional Asmnt/Malnutrition Start: 06/18/19 10: 02 Text: Status: Complete Freq: Protocol: Document 06/18/19 10:02 ASIA (Rec: 06/18/19 10:22 ASIA ANA [id number]) Nutritional Asmnt/Malnutrition Patient General Information Nutritional Screening Low Risk Diagnosis Psychosis Subjective Information Patient was admitted from [place] on 5150. Dietary providing 2300 kcal, 80gm protein. With current intake, patient is meeting estimated nutrient needs. Current Diet Order/ Nutrition Support Regular Patient / S.O Not Indicated Pertinent Medications maalox, MOM, Theragran Pertinent Labs 5/6 Cholesterol 223, LDL 140 Nutritional Hx/Data Height 1.73 m Height (Calculated Centimeters) 172.7 Current Weight (lbs) 79.379 kg Weight (Calculated Kilograms) 79.4 Weight (Calculated Grams) 33904.7 Petal Body Weight 140 % Pet[place] Body Weight 125 Body Mass Index (BMI) 26.6 Recent Weight Change No Weight Status Overweight GI Symptoms GI Symptoms None Last BM 5/8 x 1 Difficult in: None Food Allergies No Cultural/Ethnic/Gnosticism Belief none indicated Usual diet at home unknown Skin Integrity/Comment: Gary 22, intact Current %PO Good (75-100%) Estimated Nutritional Goals BEE in Kcals: Using Current wt Calories/Kcals/Kg 79.5kg CBW 22-27 kcal/kg Kcals Calculated ~9339-6600 kcal/day Protein: Using Current wt Protein g/k.8-1 gm/kg Protein Calculated ~65-80 gm/day Fluid: ml ~7815-4142 ml/day (1 ml/kcal) Nutritional Problem 1. Problem Problem No nutrition diagnosis at this time Intervention/Recommendation Comments Continue current diet as tolerated by patient. Expected Outcomes/Goals Expected Outcomes/Goals Oral intake >75% of meals, weight stable or trend toward IBW, nutrition related labs WNL F/U LR 06/24-
[2019-06-28] MEDS: Multivitamin Tab PO SCH (08:33)
[2019-06-28] MEDS: Benztropine 1 MG TAB PO SCH (08:33)
--- NOTE | 2019-06-28 12:50 | Progress Notes ---
DATE: SUBJECTIVE: Chart reviewed and the patient interviewed. Also discussed the patient's condition with the staff and reviewed records and labs. The patient was supposed to be discharged yesterday, but again the patient did not discharge and staff did not call me to cancel the discharge order and staff said this morning that Dr. Anand cancelled the discharge. It is not clear to me why the patient's order cancelled and who cancelled it exactly and for what reason and I never received any information from Dr. Anand in order to cancel the discharge. Also, staff is giving me no information. Yesterday, I spoke with the director of the unit and she informed me that Dr. Anand should not cancel the discharge orders and it should come from the psychiatrist, but at the same time, it seemed that she is unable to do so. At any rate, the patient is still calm and cooperative and I see no reason to keep her in the hospital. I recommend the patient to be discharged today and I did put discharge order. Hopefully, the patient will be discharged today. The patient is not psychotic or suicidal or homicidal, and also the patient is ready for discharge. JOB# [id number]
[2019-06-29] MEDS: Benztropine 1 MG TAB PO SCH (09:16)
[2019-06-29] MEDS: Multivitamin Tab PO SCH (09:17)
== END 2019-06-29 16:49 | DRG 885 ==
LOC: GERO 11:40
PROVIDERS: ADMIT Psychiatry & Neurology Psychiatry; ATTEND Psychiatry & Neurology Psychiatry
DX: F20.9 Schizophrenia, unspecified (principal); R45.851 Suicidal ideations; I10 Essential (primary) hypertension; E78.5 Hyperlipidemia, unspecified; Z79.899 Other long term (current) drug therapy
CPT/HCPCS: 71045-TC; 83036-90; 90899; G0410; J1630; Z7610